=== PATIENT | male | born 1985 | race Two or more races ===

== ENCOUNTER 2020-02-04 08:47 | Emergency (ER) | payer OTHER ==
[~2020-02-04] VITALS: Ht 175.3 cm; Wt 83.1 kg
[2020-02-04 08:48] VITALS: BP 125/62
== END 2020-02-04 10:08 | disposition home or self-care (01) ==
LOC: M ED 08:47
DX: Z77.21 Contact with and (suspected) exposure to potentially hazardous body fluids (principal); W55.59XA Other contact with raccoon, initial encounter